=== PATIENT | male | born 1960 | race Caucasian/White ===

== ENCOUNTER 2016-08-16 13:09 | Emergency (ER) | payer OTHER ==
[~2016-08-16] VITALS: Ht 162.6 cm; Wt 79.9 kg
[~2016-08-16 13:09] MED LIST: ENAL20TA PO
[2016-08-16 13:14] VITALS: Ht 162.6 cm; Wt 79.9 kg
[2016-08-16] MEDS ORDERED: ENAL20TA PO (14:03)
[2016-08-16] MEDS ORDERED: NICARDipine HCL 30 MG CAPSULE PO ONE (14:30)
--- NOTE | 2016-08-16 14:32 | ERD ---
ER Documentation Chief Complaint Date/Time DATE: 08/16/16 TIME: 14:29 Chief Complaint REFILL OF ENALAPRIL HPI Patient is a 55-year-old male with coronary disease and hypertension who presents for a refill of his enalapril. He says "I just need a prescription for enalapril". He said that he ran out 2 days ago. He is in between doctors and could not to the doctor to fill his prescription. He has high blood pressure. He denies any symptoms. He has no chest pain or shortness of breath. Upon review of old medical records this is the patient's 10th visit to the ER since 2012. He does not currently have a primary doctor. ROS All systems reviewed and are negative except as per history of present illness. Medications Home Meds Active Scripts Enalapril Maleate* (Enalapril Maleate*) 20 Mg Tablet, 20 MG PO DAILY, #30 TAB Prov:NADIYA SINHA MD 08/16/16 Reported Medications Enalapril Maleate* (Enalapril Maleate*) 20 Mg Tablet, 20 MG PO DAILY, TAB 08/18/15 Allergies Allergies: Coded Allergies: No Known Allergy (Unverified , 08/18/15) PMhx/Soc History of Surgery: No Anesthesia Reaction: No Hx Neurological Disorder: No Hx Respiratory Disorders: No Hx Cardiac Disorders: Yes (HTN) Hx Psychiatric Problems: No Hx Miscellaneous Medical Probl: No Hx Alcohol Use: No Hx Substance Use: No Hx Tobacco Use: No Smoking Status: Unknown if ever smoked FmHx Family History: No diabetes Physical Exam Vitals Vital Signs Date Time Temp Pulse Resp B/P Pulse Ox O2 Delivery O2 Flow Rate FiO2 08/16/16 13:14 98.1 89 18 209/128 99 Physical Exam Const: No acute distress Head: Atraumatic Eyes: Normal Conjunctiva ENT: Normal External Ears, Nose and Mouth. Neck: Full range of motion..~ No meningismus. Resp: Clear to auscultation bilaterally Cardio: Regular rate and rhythm, no murmurs Abd: Soft, non tender, non distended. Normal bowel sounds Skin: No petechiae or rashes Back: No midline or flank tenderness Ext: No cyanosis, or edema Neur: Awake and alert Psych: Normal Mood and Affect Results 24 hrs Current Medications Medications (Trade) Dose Ordered Sig/Naty Route PRN Reason Start Time Stop Time Status Last Admin Dose Admin Nicardipine HCl (Cardene) 30 mg ONCE ONCE PO 08/16/16 14:30 08/16/16 14:31 08/16/16 14:07 Procedures/MDM Smoking Cessation Therapy: Pt. was lectured for greater than 3 minutes on the health risks of continued smoking and the benefits of cessation. Patient is a 55-year-old male with hypertension who presents with hypertension. His blood pressure was over 200 systolic in the emergency department but he is a symptomatically. The patient wants a prescription for enalapril and I will give him a prescription. The patient will also be given Cardene by mouth in the emergency department for his blood pressure. At this point I doubt true hypertensive emergency. I believe outpatient management is appropriate. The patient can follow-up with a primary doctor within 1 week for reevaluation. The patient can return for any worsening symptoms. I believe outpatient management is appropriate. Departure Diagnosis: Primary Impression: Encounter for medication refill Additional Impression: Hypertension Hypertension type: essential hypertension Qualified Code: I10 - Essential hypertension Condition: Fair Patient Instructions: High Blood Pressure (Hypertension) Referrals: [facility] YOU HAVE RECEIVED A MEDICAL SCREENING EXAM AND THE RESULTS INDICATE THAT YOU DO NOT HAVE A CONDITION THAT REQUIRES URGENT TREATMENT IN THE EMERGENCY DEPARTMENT. FURTHER EVALUATION AND TREATMENT OF YOUR CONDITION CAN WAIT UNTIL YOU ARE SEEN IN YOUR DOCTORS OFFICE WITHIN THE NEXT 1-2 DAYS. IT IS YOUR RESPONSIBILITY TO MAKE AN APPOINTMENT FOR FOLOW-UP CARE. IF YOU HAVE A PRIMARY DOCTOR --you should call your primary doctor and schedule an appointment IF YOU DO NOT HAVE A PRIMARY DOCTOR YOU CAN CALL OUR PHYSICIAN REFERRAL HOTLINE AT IF YOU CAN NOT AFFORD TO SEE A PHYSICIAN YOU CAN CHOSE FROM THE FOLLOWING [facility] [address] [facility]. [facility] [address] [facility]. [facility] [address] [facility]. [facility] [address] [facility]. [facility] [address] [facility]. [facility]. [address] Additional Instructions: Call your primary care doctor TOMORROW for an appointment during the next 1-2 days.See the doctor sooner or return here if your condition worsens before your appointment time. NADIYA SINHA MD Aug 16, 2016 14:32
== END 2016-08-16 14:28 | disposition home or self-care (01) ==
LOC: E/R 13:09
DX: Z76.0 Encounter for issue of repeat prescription (principal); R40.2252 Coma scale, best verbal response, oriented, at arrival to emergency department; I10 Essential (primary) hypertension; I25.10 Atherosclerotic heart disease of native coronary artery without angina pectoris; R40.2142 Coma scale, eyes open, spontaneous, at arrival to emergency department; R40.2362 Coma scale, best motor response, obeys commands, at arrival to emergency department
CPT/HCPCS: Z7502; Z7610; 99283

== ENCOUNTER 2016-08-27 12:22 | Emergency (ER) | payer OTHER ==
[~2016-08-27] VITALS: Ht 182.9 cm; Wt 82.5 kg
[2016-08-27 12:27] VITALS: Ht 182.9 cm; Wt 82.5 kg
[2016-08-27] MEDS ORDERED: FAMOTIDINE 20 MG INJ IV STA (13:19)
[2016-08-27] MEDS ORDERED: LIDOCAINE/MYLANTA 40 ML BTL PO STA (13:19)
[2016-08-27] MEDS ORDERED: LIDOCAINE 2% VISC 15 ML CUP PO ONE (13:30)
[2016-08-27] MEDS ORDERED: AMLO-147 PO (13:42)
[2016-08-27] MEDS ORDERED: METO25TA4 PO (13:42)
[2016-08-27 14:01] LABS: ADD SCAN DIFF NO
[2016-08-27 14:03] LABS: BASOPHIL # 0.1 10^3/ul (0.0-0.1); BASOPHILS % 1.1 % (0.0-2.0); EOSINOPHILS # 0.4 10^3/ul (0.0-0.5); EOSINOPHILS % 3.7 % (0.0-7.0); HEMATOCRIT 49.1 % (42.0-52.0); HEMOGLOBIN 16.1 g/dl (14.0-18.0); LYMPHOCYTES # 2.6 10^3/ul (0.8-2.9); MEAN CORPUSCULAR HEMOGLOBIN 28.9 pg (29.0-33.0); MEAN CORPUSCULAR HGB CONC 32.8 g/dl (32.0-37.0); MEAN CORPUSCULAR VOLUME 88.2 fl (82.0-101.0); MEAN PLATELET VOLUME 10.2 fl (7.4-10.4); MONOCYTE # 0.8 10^3/ul (0.3-0.9); MONOCYTES % 7.4 % (0.0-11.0); NEUTROPHIL # 6.4 10^3/ul (1.6-7.5); NEUTROPHILS % 62.3 % (39.0-77.0); PLATELET COUNT 345 10^3/UL (140-415); RED BLOOD COUNT 5.57 10^6/ul (4.70-6.10); RED CELL DISTRIBUTION WIDTH 13.6 % (11.5-14.5); WHITE BLOOD COUNT 10.3 10^3/ul (4.8-10.8)
[2016-08-27 14:17] LABS: ALBUMIN 3.8 g/dl (3.3-4.9); CHLORIDE 100 mmol/L (97-110)
[2016-08-27 14:18] LABS: POTASSIUM 4.2 mmol/L (3.5-5.1); SODIUM 141 mmol/L (135-144)
[2016-08-27 14:20] LABS: ALBUMIN/GLOBULIN RATIO 1.18; ALKALINE PHOSPHATASE 92 IU/L (42-121); ANION GAP 17 (8-16); ASPARTATE AMINO TRANSFERASE 30 IU/L (15-46); BILIRUBIN,INDIRECT 0.9 mg/dl (0-1.1); BILIRUBIN,TOTAL 0.9 mg/dl (0.2-1.3); BLOOD UREA NITROGEN 17 mg/dl (7-20); CARBON DIOXIDE 28 mmol/L (21-31); CREATININE 1.22 mg/dl (0.61-1.24)
[2016-08-27 14:21] LABS: ALANINE AMINOTRANSFERASE 42 IU/L (13-69); CALCIUM 9.3 mg/dl (8.4-10.2); GLUCOSE 90 mg/dl (70-220)
[2016-08-27 14:31] LABS: TROPONIN-I < 0.012 ng/ml (0.00-0.12)
--- NOTE | 2016-08-27 14:41 | RADRPT ---
PROCEDURE: XR Chest. CLINICAL INDICATION: Chest pain/abdominal pain TECHNIQUE: Chest AP portable. COMPARISON: 04/12/2014 FINDINGS: The mediastinal structures are unremarkable. The heart is normal in size and configuration. The pu lmonary vascularity is normal. The lung bland are unremarkable. No consolidation is identified. The pleural spaces are unremarkable. The axial skeleton is unremarkable. IMPRESSION: No active intrathoracic disease. RPTAT: HGDB .Star Esteves MD, MD Date Time Electronically viewed and signed by .Star Esteves MD, on 08/27/2016 14:41 .B/
[2016-08-27] MEDS ORDERED: OMEP40CA6 PO (16:07)
--- NOTE | 2016-08-27 16:15 | ERD ---
ER Documentation Chief Complaint Date/Time DATE: 08/27/16 TIME: 16:10 Chief Complaint ap/epigastric pain HPI This a 55-year-old male complains of 3 days of epigastric pain that is worse after eating. He describes the pain as a burning sensation that is relieved with burping. Says that he gets worse every time after food and also when he lays flat at night. He states he has had the same thing in the past with heartburn. No diarrhea no chest pain no shortness of breath no nausea vomiting. No melena. No pain in the jaws shoulders elbows arms. No radiation of pain ROS All systems reviewed and are negative except as per history of present illness. Medications Home Meds Active Scripts Omeprazole* (Omeprazole*) 40 Mg Capsule.dr, 40 MG PO DAILY, #30 CAP Prov:TRACIE MIRELES DO 08/27/16 Enalapril Maleate* (Enalapril Maleate*) 20 Mg Tablet, 20 MG PO DAILY, #30 TAB Prov:NADIYA SINHA MD 08/16/16 Reported Medications Metoprolol Tartrate* (Lopressor*) 25 Mg Tablet, 25 MG PO BID, #60 TAB 08/27/16 Amlodipine Besylate* (Amlodipine Besylate*) 10 Mg Tablet, 10 MG PO DAILY, #30 TAB 08/27/16 Discontinued Reported Medications Enalapril Maleate* (Enalapril Maleate*) 20 Mg Tablet, 20 MG PO DAILY, TAB 08/18/15 Allergies Allergies: Coded Allergies: No Known Allergy (Unverified , 08/27/16) PMhx/Soc History of Surgery: No Anesthesia Reaction: No Hx Neurological Disorder: No Hx Respiratory Disorders: No Hx Cardiac Disorders: Yes (HTN, heart valve stenosis) Hx Psychiatric Problems: No Hx Miscellaneous Medical Probl: No Hx Alcohol Use: No Hx Substance Use: No Hx Tobacco Use: Yes Smoking Status: Current every day smoker FmHx Family History: No coronary disease Physical Exam Vitals Vital Signs Date Time Temp Pulse Resp B/P Pulse Ox O2 Delivery O2 Flow Rate FiO2 08/27/16 14:29 57 17 130/94 100 Room Air 08/27/16 13:23 66 16 140/100 100 Room Air 08/27/16 12:27 98.0 80 18 156/97 100 Physical Exam Const: Well-developed, well-nourished Head: Atraumatic, normocephalic Eyes: Normal Conjunctiva, PERRLA, EOMI, normal sclera, no nystagmus ENT: Normal External Ears, Nose and Mouth, moist mucus membranes. Neck: Full range of motion. No meningismus, no lymphadenopathy. Resp: Clear to auscultation bilaterally, no wheezing, rhonchi, rales Cardio: Regular rate and rhythm, no murmurs, S1 S2 present Abd: Soft, mild reproducible epigastric tenderness non distended. Normal bowel sounds, no guarding or rebound, no pulsitile abdominal masses or bruits Skin: No petechiae or rashes, no ecchymosis , no maculopapular rash Back: No midline or flank tenderness Ext: No cyanosis, or edema, FROM x 4, normal inspection, neurovascularly intact x 4 Neur: Awake and alert, STR 5/5 x 4, sensation intact x 4, no focal findings, cerebellum intact Psych: Normal Mood and Affect Result Diagram: 08/27/16 1325 08/27/16 1325 Results 24 hrs Laboratory Tests Test 08/27/16 13:25 White Blood Count 10.310^3/ul Red Blood Count 5.5710^6/ul Hemoglobin 16.1g/dl Hematocrit 49.1% Mean Corpuscular Volume 88.2fl Mean Corpuscular Hemoglobin 28.9pg Mean Corpuscular Hemoglobin Concent 32.8g/dl Red Cell Distribution Width 13.6% Platelet Count 55112^3/UL Mean Platelet Volume 10.2fl Neutrophils % 62.3% Lymphocytes % 25.0% Monocytes % 7.4% Eosinophils % 3.7% Basophils % 1.1% Nucleated Red Blood Cells % 0.0/100WBC Neutrophils # 6.410^3/ul Lymphocytes # 2.610^3/ul Monocytes # 0.810^3/ul Eosinophils # 0.410^3/ul Basophils # 0.110^3/ul Nucleated Red Blood Cells # 0.010^3/ul Sodium Level 141mmol/L Potassium Level 4.2mmol/L Chloride Level 100mmol/L Carbon Dioxide Level 28mmol/L Anion Gap 17 Blood Urea Nitrogen 17mg/dl Creatinine 1.22mg/dl Glucose Level 90mg/dl Calcium Level 9.3mg/dl Total Bilirubin 0.9mg/dl Direct Bilirubin 0.00mg/dl Indirect Bilirubin 0.9mg/dl Aspartate Amino Transf (AST/SGOT) 30IU/L Alanine Aminotransferase (ALT/SGPT) 42IU/L Alkaline Phosphatase 92IU/L Troponin I < 0.012ng/ml Total Protein 7.0g/dl Albumin 3.8g/dl Globulin 3.20g/dl Albumin/Globulin Ratio 1.18 Lipase 262U/L Current Medications Medications (Trade) Dose Ordered Sig/Naty Route PRN Reason Start Time Stop Time Status Last Admin Dose Admin Famotidine (Pepcid Iv) 20 mg ONCE STAT IV 08/27/16 13:19 08/27/16 13:21 DC 08/27/16 13:34 Miscellaneous Medication (Gi Cocktail (2)) 40 ml ONCE STAT PO 08/27/16 13:19 08/27/16 13:21 DC 08/27/16 13:34 Lidocaine (Xylocaine (Viscous)) 15 ml ONCE ONCE PO 08/27/16 13:30 08/27/16 13:31 DC 08/27/16 13:34 Procedures/MDM EKG: Rate/Rhythm: Normal Sinus Rhythm,NL intervals, LVH QRS, ST, QT: NORMAL CT, QRS, QT] Impression: NORMAL EKG PROCEDURE: XR Chest. CLINICAL INDICATION: Chest pain/abdominal pain TECHNIQUE: Chest AP portable. COMPARISON: 04/12/2014 FINDINGS: The mediastinal structures are unremarkable. The heart is normal in size and configuration. The pulmonary vascularity is normal. The lung bland are unremarkable. No consolidation is identified. The pleural spaces are unremarkable. The axial skeleton is unremarkable. IMPRESSION: No active intrathoracic disease. RPTAT: HGDB .Star Esteves MD, Date Time Electronically viewed and signed by .Star Esteves MD, MD on 08/27/2016 14:41 .B/ CC: TRACIE MIRELES DO Patient received a GI cocktail with extra lidocaine. He said this completely relieved his symptoms. The patient was then given a p.o. challenge and is able to tolerate food without any pain. Kristel patient's symptoms are GI related and not cardiac. Discharge with omeprazole and I reviewed with him a low acid diet Departure Diagnosis: Primary Impression: Dyspepsia Condition: Stable Patient Instructions: Gastritis Vs. Ulcer TRACIE MIRELES DO Aug 27, 2016 16:15
[2016-08-27 16:19] VITALS: BP 134/104; PULSE 56; RESP 18
== END 2016-08-27 16:22 | disposition home or self-care (01) ==
LOC: E/R 12:22
DX: R10.13 Epigastric pain (principal); I10 Essential (primary) hypertension; F17.210 Nicotine dependence, cigarettes, uncomplicated
CPT/HCPCS: 71010; 80053; 83690; 84484; 85025; 93005; Z7610; 36415; 96374

== ENCOUNTER 2016-10-27 16:39 | Emergency (ER) | payer OTHER ==
[~2016-10-27] VITALS: Ht 182.9 cm; Wt 81.9 kg
[~2016-10-27 16:39] MED LIST changes: +AMLO-147 PO; +METO25TA4 PO; +OMEP40CA6 PO
[2016-10-27 16:40] VITALS: Ht 182.9 cm; Wt 81.9 kg
[2016-10-27] MEDS ORDERED: METO-448 PO (17:53)
[2016-10-27] MEDS ORDERED: ENAL20TA PO (17:54)
[2016-10-27] MEDS ORDERED: AMLO5TAB4 PO (17:54)
--- NOTE | 2016-10-27 18:10 | ERD ---
ER Documentation Chief Complaint Date/Time DATE: 10/27/16 TIME: 18:08 Chief Complaint Med refill Enalapril, Metoprolol, Amlodipine HPI This is a 55-year-old male presents to the ER for medication refill. Patient currently takes enalapril metoprolol and amlodipine for his high blood pressure. Patient ran out of blood pressure medication 4 days ago and is not taking any medication. Patient is currently asymptomatic and denies any chest pain, shortness of breath, headache, dizziness, blurry vision. He states that he has not been able to get a primary care doctor and this is the reason why he ran out of his blood pressure medication. ROS 12 point review of systems was done, all negative except per HPI. Medications Home Meds Active Scripts Enalapril Maleate* (Enalapril Maleate*) 20 Mg Tablet, 20 MG PO DAILY for 30 Days , #30 TAB Prov:KRISTY TREVINO 10/27/16 Amlodipine Besylate* (Norvasc*) 5 Mg Tablet, 5 MG PO QHS for 30 Days, #30 TAB Prov:KRISTY TREVINO 10/27/16 Metoprolol Tartrate* (Lopressor*) 25 Mg Tab, 25 MG PO BID for 30 Days, #60 TAB Prov:URIELKRISTY MERRILL 10/27/16 Omeprazole* (Omeprazole*) 40 Mg Capsule.dr, 40 MG PO DAILY, #30 CAP Prov:TRACIE MIRELES DO 08/27/16 Enalapril Maleate* (Enalapril Maleate*) 20 Mg Tablet, 20 MG PO DAILY, #30 TAB Prov:NADIYA SINHA MD 08/16/16 Reported Medications Metoprolol Tartrate* (Lopressor*) 25 Mg Tablet, 25 MG PO BID, #60 TAB 08/27/16 Amlodipine Besylate* (Amlodipine Besylate*) 10 Mg Tablet, 10 MG PO DAILY, #30 TAB 08/27/16 Allergies Allergies: Coded Allergies: No Known Allergy (Unverified , 08/27/16) PMhx/Soc Medical and Surgical Hx: pt denies Medical Hx History of Surgery: No Anesthesia Reaction: No Hx Neurological Disorder: No Hx Respiratory Disorders: No Hx Cardiac Disorders: Yes (HTN, heart valve stenosis) Hx Psychiatric Problems: No Hx Miscellaneous Medical Probl: No Hx Alcohol Use: No Hx Substance Use: No Hx Tobacco Use: Yes Smoking Status: Current every day smoker Physical Exam Vitals Physical Exam GENERAL: The patient is well developed and appropriate for usual state of health , in no apparent distress. HEENT: Atraumatic. CHEST: Clear to auscultation bilaterally. There are no rales, wheezes or rhonchi. HEART: Regular rate and rhythm. No murmurs, clicks, rubs or gallops. EXTREMITIES: Full range of motion. Grossly neurovascularly intact. NEURO: Alert and oriented. Cranial nerves II through XII are intact. Motor strength in all 4 extremities with 5/5 strength. Sensation grossly intact. Normal speech and gait. SKIN: There is no apparent rash or petechia. The skin is warm and dry. Results 24 hrs Current Medications Medications (Trade) Dose Ordered Sig/Naty Route PRN Reason Start Time Stop Time Status Last Admin Dose Admin Clonidine (Catapres) 0.1 mg ONCE ONCE PO 10/27/16 17:30 10/27/16 17:31 DC 10/27/16 17:19 Procedures/MDM This is a 55-year-old male presents to the ER for medication refill. Patient's blood pressure was elevated to 203/118. He was given clonidine and his blood pressures was trending down. Patient is completely asymptomatic and simply has not had medication for the last 4 days. Patient does not have any hypertensive urgency or emergency. Patient will be sent home with his refills. He needs to follow-up with his primary care doctor within 1-2 days return to ER sooner if symptoms worsen. My medical decision making was shared with the patient he understands and agrees with plan. Departure Diagnosis: Primary Impression: Encounter for medication refill Condition: Stable Patient Instructions: Taking Medicine Safely Referrals: RICK TEE (PCP) Additional Instructions: Call your primary care doctor TOMORROW for an appointment during the next 1-2 days.See the doctor sooner or return here if your condition worsens before your appointment time. KRISTY TREVINO Oct 27, 2016 18:10 Patient Instructions: Taking Medicine Safely Referrals: RICK TEE (PCP) Additional Instructions: Call your primary care doctor TOMORROW for an appointment during the next 1-2 days.See the doctor sooner or return here if your condition worsens before your appointment time. KRISTY TREVINO Oct 27, 2016 18:10
[2016-10-27 18:20] VITALS: BP 168/100; PULSE 84; RESP 20; TEMP 98.2
== END 2016-10-27 18:22 | disposition home or self-care (01) ==
LOC: E/R 16:39 → FTE 18:22
DX: Z76.0 Encounter for issue of repeat prescription (principal); I10 Essential (primary) hypertension; F17.210 Nicotine dependence, cigarettes, uncomplicated
CPT/HCPCS: 99283

== ENCOUNTER 2016-11-27 10:35 | Emergency (ER) | payer OTHER ==
[~2016-11-27] VITALS: Ht 182.9 cm; Wt 86.0 kg
[~2016-11-27 10:35] MED LIST changes: +AMLO5TAB4 PO; +METO-448 PO
[2016-11-27 10:42] VITALS: Ht 182.9 cm; Wt 86.0 kg
[2016-11-27] MEDS ORDERED: ENAL20TA PO (10:58)
[2016-11-27] MEDS ORDERED: OMEP20CA16 PO (10:58)
[2016-11-27] MEDS ORDERED: AMLO-145 PO (10:58)
[2016-11-27] MEDS ORDERED: METO25TA4 PO (10:58)
--- NOTE | 2016-11-27 11:14 | ERD ---
ER Documentation Chief Complaint Date/Time DATE: 11/27/16 TIME: 11:12 Chief Complaint REQUIRES MEDICATION REFILL FOR DAILY HTN MANAGEMENT HPI This particular 56-year-old gentleman comes to the emergency room simply for medication refills. He lost his insurance and currently does not have a doctor but he is in the process of going through the paperwork to get [employer] and is the assigned a primary care physician. He is out of amlodipine, Prilosec, metoprolol, enalapril. He has no symptoms of chest pain or any other pain or abnormality currently. ROS All systems reviewed and are negative except as per history of present illness. Medications Home Meds Active Scripts Omeprazole* (Omeprazole*) 20 Mg Capsule., 20 MG PO DAILY, #30 CAP Prov:TOMCHRISTOPHER DO 11/27/16 Enalapril Maleate* (Enalapril Maleate*) 20 Mg Tablet, 20 MG PO DAILY, #30 TAB Prov:CHRISTOPHER SANTOS DO 11/27/16 Metoprolol Tartrate* (Lopressor*) 25 Mg Tablet, 25 MG PO BID, #60 TAB Prov:CHRISTOPHER SANTOS DO 11/27/16 Amlodipine Besylate* (Amlodipine Besylate*) 5 Mg Tablet, 5 MG PO DAILY, #30 TAB Prov:CHRISTOPHER SANTOS DO 11/27/16 Enalapril Maleate* (Enalapril Maleate*) 20 Mg Tablet, 20 MG PO DAILY for 30 Days , #30 TAB Prov:URIEL,KRISTY C 10/27/16 Amlodipine Besylate* (Norvasc*) 5 Mg Tablet, 5 MG PO QHS for 30 Days, #30 TAB Prov:URIEL,KRISTY C 10/27/16 Metoprolol Tartrate* (Lopressor*) 25 Mg Tab, 25 MG PO BID for 30 Days, #60 TAB Prov:URIEL,KRISTY C 10/27/16 Omeprazole* (Omeprazole*) 40 Mg Capsule., 40 MG PO DAILY, #30 CAP Prov:TRACIE MIRELES DO 08/27/16 Enalapril Maleate* (Enalapril Maleate*) 20 Mg Tablet, 20 MG PO DAILY, #30 TAB Prov:NADIYA SINHA MD 08/16/16 Reported Medications Metoprolol Tartrate* (Lopressor*) 25 Mg Tablet, 25 MG PO BID, #60 TAB 08/27/16 Amlodipine Besylate* (Amlodipine Besylate*) 10 Mg Tablet, 10 MG PO DAILY, #30 TAB 08/27/16 Allergies Allergies: Coded Allergies: No Known Allergy (Unverified , 08/27/16) PMhx/Soc History of Surgery: No Anesthesia Reaction: No Hx Neurological Disorder: No Hx Respiratory Disorders: No Hx Cardiac Disorders: Yes (HTN, heart valve stenosis) Hx Psychiatric Problems: No Hx Miscellaneous Medical Probl: No Hx Alcohol Use: No Hx Substance Use: No Hx Tobacco Use: Yes Physical Exam Vitals Vital Signs Date Time Temp Pulse Resp B/P Pulse Ox O2 Delivery O2 Flow Rate FiO2 11/27/16 10:42 98.0 62 18 159/89 98 Physical Exam Const: [] No distress . Neck: Full range of motion..~ No meningismus. No JVD Resp: Clear to auscultation bilaterally Cardio: Regular rate and rhythm, no murmurs Procedures/MDM Simple medication refill of antihypertensive medications and Prilosec. Giving him a 30 day supply to allow him time to finish his [employer] paperwork and get a primary physician. Return precautions for any acute symptoms. Departure Diagnosis: Primary Impression: Hypertension Additional Impression: Encounter for medication refill Condition: Stable Patient Instructions: High Blood Pressure (Hypertension) Additional Instructions: Call your primary care doctor TOMORROW for an appointment during the next 2-3 days.See the doctor sooner or return here if your condition worsens before your appointment time. CHRISTOPHER SANTOS DO Nov 27, 2016 11:14
== END 2016-11-27 12:42 | disposition home or self-care (01) ==
LOC: FTE 10:35
DX: I10 Essential (primary) hypertension (principal); Z87.891 Personal history of nicotine dependence
CPT/HCPCS: 99281

== ENCOUNTER 2017-01-05 16:30 | Emergency (ER) | payer OTHER ==
[~2017-01-05] VITALS: Ht 175.3 cm; Wt 87.0 kg
[~2017-01-05 16:30] MED LIST changes: +AMLO-145 PO; +OMEP20CA16 PO
[2017-01-05 16:32] VITALS: Ht 175.3 cm; Wt 87.0 kg
[2017-01-05] MEDS ORDERED: OMEP40CA6 PO (16:59)
[2017-01-05] MEDS ORDERED: METO25TA7 PO (16:59)
[2017-01-05] MEDS ORDERED: ENAL20TA PO (16:59)
[2017-01-05] MEDS ORDERED: AMLO2.5T78 PO (16:59)
--- NOTE | 2017-01-05 17:12 | ERA ---
ER Documentation Chief Complaint Date/Time DATE: 01/05/17 TIME: 17:10 Chief Complaint NEEDS MED REFILL ON HTN MEDS , OUT OF MEDS X 2 DAYS HPI 56-year-old male presenting requesting medication refill. Patient is requesting refills on his amlodipine, enalapril, metoprolol. Patient states he realizes he needs a primary care physician but cannot find one at this time. Patient has no current complaints and describes no adverse effects of the medications. No recent travel. Vaccination status up-to-date. ROS All systems reviewed and are negative except as per history of present illness. Medications Home Meds Active Scripts Metoprolol Succinate* (Toprol XL*) 25 Mg Tab.sr.24h, 25 MG PO DAILY for 14 Days , #30 TAB Prov:SYEDA LU PA-C 01/05/17 Amlodipine Besylate* (Amlodipine Besylate*) 2.5 Mg Tablet, 5 MG PO DAILY, #14 TAB Prov:SYEDA LU PA-C 01/05/17 Enalapril Maleate* (Enalapril Maleate*) 20 Mg Tablet, 20 MG PO DAILY for 14 Days , TAB Prov:SYEDA LU PA-C 01/05/17 Omeprazole* (Omeprazole*) 40 Mg Capsule., 40 MG PO DAILY, #10 CAP Prov:SYEDA LU PA-C 01/05/17 Omeprazole* (Omeprazole*) 20 Mg Capsule.dr, 20 MG PO DAILY, #30 CAP Prov:CHRISTOPHER SANTOS DO 11/27/16 Enalapril Maleate* (Enalapril Maleate*) 20 Mg Tablet, 20 MG PO DAILY, #30 TAB Prov:CHRISTOPHER SANTOS DO 11/27/16 Metoprolol Tartrate* (Lopressor*) 25 Mg Tablet, 25 MG PO BID, #60 TAB Prov:CHRISTOPHER SANTOS DO 11/27/16 Amlodipine Besylate* (Amlodipine Besylate*) 5 Mg Tablet, 5 MG PO DAILY, #30 TAB Prov:CHRISTOPHER SANTOS DO 11/27/16 Enalapril Maleate* (Enalapril Maleate*) 20 Mg Tablet, 20 MG PO DAILY for 30 Days , #30 TAB Prov:KRISTY TREVINO 10/27/16 Amlodipine Besylate* (Norvasc*) 5 Mg Tablet, 5 MG PO QHS for 30 Days, #30 TAB Prov:KRISTY TREVINO 10/27/16 Metoprolol Tartrate* (Lopressor*) 25 Mg Tab, 25 MG PO BID for 30 Days, #60 TAB Prov:KRISTY TREVINO C 10/27/16 Omeprazole* (Omeprazole*) 40 Mg Capsule.dr, 40 MG PO DAILY, #30 CAP Prov:TRACIE MIRELES DO 08/27/16 Enalapril Maleate* (Enalapril Maleate*) 20 Mg Tablet, 20 MG PO DAILY, #30 TAB Prov:NADIYA SINHA MD 08/16/16 Reported Medications Metoprolol Tartrate* (Lopressor*) 25 Mg Tablet, 25 MG PO BID, #60 TAB 08/27/16 Amlodipine Besylate* (Amlodipine Besylate*) 10 Mg Tablet, 10 MG PO DAILY, #30 TAB 08/27/16 Allergies Allergies: Coded Allergies: No Known Allergy (Unverified , 08/27/16) PMhx/Soc History of Surgery: No Anesthesia Reaction: No Hx Neurological Disorder: No Hx Respiratory Disorders: No Hx Cardiac Disorders: Yes (HTN, heart valve stenosis) Hx Psychiatric Problems: No Hx Miscellaneous Medical Probl: No Hx Alcohol Use: No Hx Substance Use: No Hx Tobacco Use: Yes Smoking Status: Current every day smoker Physical Exam Vitals Vital Signs Date Time Temp Pulse Resp B/P Pulse Ox O2 Delivery O2 Flow Rate FiO2 01/05/17 16:32 98.1 74 16 218/108 98 Physical Exam Const: Well-appearing, no acute distress. Head: Atraumatic Eyes: Normal Conjunctiva ENT: Normal External Ears, Nose and Mouth. Neck: Full range of motion..~ No meningismus. Resp: Clear to auscultation bilaterally Cardio: Regular rate and rhythm, no murmurs Abd: Soft, non tender, non distended. Normal bowel sounds Skin: No petechiae or rashes Back: No midline or flank tenderness Ext: No cyanosis, or edema Neur: Awake and alert Psych: Normal Mood and Affect Procedures/MDM 56-year-old male presenting requesting medication refill. Patient is currently actively trying to find a PCP. Medications will be given 14 days. I told the patient he is to find a PCP. List of community clinics has been given to the patient. Vitals are stable and current condition is appropriate for discharge. Patient will be given discharge instructions with return precautions per Departure Diagnosis: Primary Impression: Encounter for medication refill Condition: Stable Patient Instructions: Taking Medicine Safely Referrals: RICK TEE (PCP) [facility] YOU HAVE RECEIVED A MEDICAL SCREENING EXAM AND THE RESULTS INDICATE THAT YOU DO NOT HAVE A CONDITION THAT REQUIRES URGENT TREATMENT IN THE EMERGENCY DEPARTMENT. FURTHER EVALUATION AND TREATMENT OF YOUR CONDITION CAN WAIT UNTIL YOU ARE SEEN IN YOUR DOCTORS OFFICE WITHIN THE NEXT 1-2 DAYS. IT IS YOUR RESPONSIBILITY TO MAKE AN APPOINTMENT FOR FOLOW-UP CARE. IF YOU HAVE A PRIMARY DOCTOR --you should call your primary doctor and schedule an appointment IF YOU DO NOT HAVE A PRIMARY DOCTOR YOU CAN CALL OUR PHYSICIAN REFERRAL HOTLINE AT IF YOU CAN NOT AFFORD TO SEE A PHYSICIAN YOU CAN CHOSE FROM THE FOLLOWING [facility] [address] [facility]. [facility] [address] [facility] [facility] [address] [facility] [facility] [address] [facility] [facility] [address] [facility]. [facility]. [address] [place] . [facility] [place] () Usted se blanchard hecho un examen mdico de control que le indica que no est en imelda condicin que requiera tratamiento urgente en el Departamento de Emergencia. Un estudio ms profundo y el tratamiento de hernandez condicin pueden esperar sin ningn riesgo hasta que usted sea atendida/o en el consultorio de hernandez mdico o imelda cl jasmina. Es responsabilidad suya arreglar imelda mahesh para el seguimiento del mickey. MANEJO DE CONDICIONES NO URGENTES EN EL FUTURO 1) Si usted tiene un mdico de atencin primaria: Usted debera llamar a hernandez mdico de atencin primaria antes de venir al departamento de emergencia. Despus de las horas de consultorio, hernandez doctor o hernandez asociado/a est disponible por telfono. El mdico o enfermero de sebas en el servicio telefnico puede asesorarle por maik medio para atender el problema, o mickey contrario se puede programar imelda mahesh. 2) Si usted no tiene un mdico de atencin primaria: Llame al mdico o clnica de referencia que aparece abajo dhruv las horas de consultorio para hacer imelda mahesh para que le vean. CLINICAS: [facility] [phone] [address] [facility] [phone] [facility] [phone] [facility] [phone] [place] [id number] [phone] [facility] [phone] [address] Additional Instructions: Follow up with your PCP within the next 1-3 days for a more thorough evaluation and a possible referral to a specialist. A list of [facility] has been given to. Return the the emergency department immediately if symptoms arise. Take your medications as directed. SYEDA LU PA-C Jan 05, 2017 17:09
== END 2017-01-05 17:20 | disposition home or self-care (01) ==
LOC: FTE 16:30
DX: Z76.0 Encounter for issue of repeat prescription (principal); I10 Essential (primary) hypertension; F17.210 Nicotine dependence, cigarettes, uncomplicated
CPT/HCPCS: 99281

== ENCOUNTER 2017-01-28 09:48 | Emergency (ER) | payer OTHER ==
[~2017-01-28] VITALS: Ht 182.9 cm; Wt 89.8 kg
[~2017-01-28 09:48] MED LIST changes: +AMLO2.5T78 PO; +METO-335 PO
[2017-01-28 09:52] VITALS: Ht 182.9 cm; Wt 89.8 kg
[2017-01-28] MEDS ORDERED: IPRATROPIUM (NEB) 0.5 MG/2.5 ML AMP INH STA (10:52)
[2017-01-28] MEDS ORDERED: ALBUTEROL 0.5% (NEB) 2.5 MG/0.5 ML AMP INH STA (10:52)
[2017-01-28] MEDS ORDERED: OMEP40CA6 PO (11:13)
[2017-01-28] MEDS ORDERED: AMLO5TAB4 PO (11:13)
[2017-01-28] MEDS ORDERED: ENAL20TA PO (11:13)
[2017-01-28] MEDS ORDERED: METO-448 PO (11:14)
[2017-01-28 11:27] LABS: BASOPHIL # 0.1 10^3/ul (0.0-0.1); BASOPHILS % 0.9 % (0.0-2.0); EOSINOPHILS # 0.5 10^3/ul (0.0-0.5); EOSINOPHILS % 4.4 % (0.0-7.0); HEMATOCRIT 45.6 % (42.0-52.0); HEMOGLOBIN 15.1 g/dl (14.0-18.0); LYMPHOCYTES % 18.3 % (15.0-51.0); MEAN CORPUSCULAR HGB CONC 33.1 g/dl (32.0-37.0); MEAN CORPUSCULAR VOLUME 87.7 fl (82.0-101.0); MEAN PLATELET VOLUME 10.5 fl (7.4-10.4); MONOCYTE # 0.8 10^3/ul (0.3-0.9); MONOCYTES % 7.3 % (0.0-11.0); NEUTROPHIL # 7.5 10^3/ul (1.6-7.5); NEUTROPHILS % 68.8 % (39.0-77.0); PLATELET COUNT 286 10^3/UL (140-415); RED CELL DISTRIBUTION WIDTH 13.5 % (11.5-14.5); WHITE BLOOD COUNT 10.9 10^3/ul (4.8-10.8)
[2017-01-28] MEDS ORDERED: hydrALAzine 20 MG INJ IV ONE (11:30)
[2017-01-28 11:47] LABS: ANION GAP 11 (8-16); BLOOD UREA NITROGEN 13 mg/dl (7-20); CALCIUM 8.7 mg/dl (8.4-10.2); CARBON DIOXIDE 29 mmol/L (21-31); CHLORIDE 105 mmol/L (97-110); CREATININE 1.02 mg/dl (0.61-1.24); GLUCOSE 141 mg/dl (70-220); POTASSIUM 3.8 mmol/L (3.5-5.1); SODIUM 141 mmol/L (135-144)
[2017-01-28] MEDS ORDERED: NICARDipine HCL 30 MG CAPSULE PO ONE (12:00)
[2017-01-28 12:03] LABS: TROPONIN-I < 0.012 ng/ml (0.00-0.12)
--- NOTE | 2017-01-28 12:03 | RADRPT ---
PROCEDURE: XR Chest. CLINICAL INDICATION: chest pain TECHNIQUE: Single frontal view of the chest was obtained COMPARISON: 08/27/2016 FINDINGS: The heart and mediastinum are within normal limits. There is mild left lower lobe linear atelectasis. The lungs are otherwise clear. There is no pleural effusion or pneumothorax. RPTAT: AA IMPRESSION: Mild left lower lobe linear atelectasis. .Christopher Serrato MD, MD Date Time Electronically viewed and signed by .Christopher Serrato MD, on 01/28/2017 12:02 .S/
[2017-01-28] MEDS ORDERED: ACETAMINOPHEN 500 MG TAB PO STA (12:13)
--- NOTE | 2017-01-28 12:48 | RADRPT ---
PROCEDURE: CT brain without contrast CLINICAL INDICATION: Headache TECHNIQUE: CT of the brain without contrast performed on a multidetector CT scanner, with multiplan ar reformats. One or more of the following dose reduction techniques were used: Automated exposure control, adjustment in mA and / or kV according to patient size, use of iterative reconstructive kenneth hnique. CTDIvol = 45 mGy; DLP = 720 mGy-cm. COMPARISON: None available FINDINGS: No acute intracranial hemorrhage is identified. No extra-axial fluid collection is seen. There is no mass effect. No midline shift is identified. The ventricles and sulci are mildly enlarged compatible with volume loss. The density of the brain appears unremarkable. Dumont-white differentiation is preserved. Atherosclerotic calcifications of the intracranial internal carotid arteries are noted. Calvarium and skull base are intact. Mild-moderate frontal sinus mucosal thickening, bilateral ethm oid air cell. Partial opacification/mild to moderate mucosal thickening, sphenoid secretions with fl uid level on the right, and suggestion of small left maxillary sinus fluid level are seen. IMPRESSION: 1. No evidence of acute intracranial pathology. 2. Mild volume loss. 3. Paranasal sinus disease described above. RPTAT: AA .Tee Almanza MD, Date Time Electronically viewed and signed by .Tee Almanza MD, on 01/28/2017 12:48 .O/
--- NOTE | 2017-01-28 13:10 | ERD ---
ER Documentation Chief Complaint Date/Time DATE: 01/28/17 TIME: 13:07 Chief Complaint SOB, HEADACHE X 3 DAYS HPI This is a 46-year-old male with a history of hypertension who presents to the emergency room for evaluation of shortness of breath and a headache and high blood pressure. The patient states that he is taking lisinopril, metoprolol, and amlodipine. He states that he does not have a primary doctor and get some majority of his medications to the emergency room. He came to the emergency room today for evaluation of his symptoms of mild shortness of breath and a headache and high blood pressure. He denies any chest pain or palpitations. ROS All systems reviewed and are negative except as per history of present illness. Medications Home Meds Reported Medications Metoprolol Tartrate* (Lopressor*) 25 Mg Tab, 25 MG PO BID, #60 TAB 01/28/17 Omeprazole* (Omeprazole*) 40 Mg Capsule.dr, 40 MG PO DAILY, #30 CAP 01/28/17 Amlodipine Besylate* (Norvasc*) 5 Mg Tablet, 5 MG PO DAILY, TAB 01/28/17 Enalapril Maleate* (Enalapril Maleate*) 20 Mg Tablet, 20 MG PO DAILY, TAB 01/28/17 Discontinued Reported Medications Metoprolol Tartrate* (Lopressor*) 25 Mg Tablet, 25 MG PO BID, #60 TAB 08/27/16 Amlodipine Besylate* (Amlodipine Besylate*) 10 Mg Tablet, 10 MG PO DAILY, #30 TAB 08/27/16 Discontinued Scripts Metoprolol Succinate* (Toprol XL*) 25 Mg Tab.sr.24h, 25 MG PO DAILY for 14 Days , #30 TAB Prov:SYEDA LU PA-C 01/05/17 Amlodipine Besylate* (Amlodipine Besylate*) 2.5 Mg Tablet, 5 MG PO DAILY, #14 TAB Prov:SYEDA LU PA-C 01/05/17 Enalapril Maleate* (Enalapril Maleate*) 20 Mg Tablet, 20 MG PO DAILY for 14 Days , TAB Prov:SYEDA LU PA-C 01/05/17 Omeprazole* (Omeprazole*) 40 Mg Capsule., 40 MG PO DAILY, #10 CAP Prov:SYEDA LU PA-C 01/05/17 Omeprazole* (Omeprazole*) 20 Mg Capsule.dr, 20 MG PO DAILY, #30 CAP Prov:CHRISTOPHER SANTOS DO 11/27/16 Enalapril Maleate* (Enalapril Maleate*) 20 Mg Tablet, 20 MG PO DAILY, #30 TAB Prov:CHRISTOPHER SANTOS DO 11/27/16 Metoprolol Tartrate* (Lopressor*) 25 Mg Tablet, 25 MG PO BID, #60 TAB Prov:CHRISTOPHER SANTOS DO 11/27/16 Amlodipine Besylate* (Amlodipine Besylate*) 5 Mg Tablet, 5 MG PO DAILY, #30 TAB Prov:CHRISTOPHER SANTOS DO 11/27/16 Enalapril Maleate* (Enalapril Maleate*) 20 Mg Tablet, 20 MG PO DAILY for 30 Days , #30 TAB Prov:KRISTY TREVINO C 10/27/16 Amlodipine Besylate* (Norvasc*) 5 Mg Tablet, 5 MG PO QHS for 30 Days, #30 TAB Prov:KRISTY TREVINO C 10/27/16 Metoprolol Tartrate* (Lopressor*) 25 Mg Tab, 25 MG PO BID for 30 Days, #60 TAB Prov:KRISTY TREVINO C 10/27/16 Omeprazole* (Omeprazole*) 40 Mg Capsule., 40 MG PO DAILY, #30 CAP Prov:TRACIE MIRELES DO 08/27/16 Enalapril Maleate* (Enalapril Maleate*) 20 Mg Tablet, 20 MG PO DAILY, #30 TAB Prov:NADIYA SINHA MD 08/16/16 Allergies Allergies: Coded Allergies: No Known Allergy (Unverified , 01/28/17) PMhx/Soc History of Surgery: No Anesthesia Reaction: No Hx Neurological Disorder: No Hx Respiratory Disorders: No Hx Cardiac Disorders: Yes (HTN, heart valve stenosis) Hx Psychiatric Problems: No Hx Miscellaneous Medical Probl: No Hx Alcohol Use: No Hx Substance Use: No Hx Tobacco Use: Yes Smoking Status: Current every day smoker Physical Exam Vitals Vital Signs Date Time Temp Pulse Resp B/P Pulse Ox O2 Delivery O2 Flow Rate FiO2 01/28/17 12:08 98.1 64 16 163/100 99 Room Air 01/28/17 11:20 57 18 99 21 01/28/17 10:15 63 205/127 01/28/17 09:52 98.2 64 18 213/130 99 Physical Exam INITIAL VITAL SIGNS: Reviewed by me GENERAL: The patient is well developed and appropriate for usual state of health in no apparent distress HEENT: Pupils equal, round, and reactive to light. EOMI. There is no scleral icterus. NECK: C-spine is soft and supple, there is no meningismus. There is no cervical lymphadenopathy. LUNGS: Clear to auscultation bilaterally. There are no rales, wheezes or rhonchi. HEART: Regular rate and rhythm, no murmurs, clicks, rubs or gallops. ABDOMEN: Soft, non-tender, non-distended. There are bowel sounds in all four quadrants. No rebound or guarding. EXTREMITIES: There is no peripheral cyanosis or edema. No focal swelling or erythema. NEUROLOGICAL: The patient moves all four extremities with 5/5 strength. Cranial nerves II - XII are intact. Normal gait. Alert and oriented SKIN: There is no apparent rash or petechiae. HEME/LYMPHATIC: There is no evidence of excessive bruising or lymphedema. PSYCHIATRIC: The patient does not appear anxious or depressed. Result Diagram: 01/28/17 1110 01/28/17 1110 Results 24 hrs Laboratory Tests Test 01/28/17 11:10 White Blood Count 10.910^3/ul Red Blood Count 5.2010^6/ul Hemoglobin 15.1g/dl Hematocrit 45.6% Mean Corpuscular Volume 87.7fl Mean Corpuscular Hemoglobin 29.0pg Mean Corpuscular Hemoglobin Concent 33.1g/dl Red Cell Distribution Width 13.5% Platelet Count 52795^3/UL Mean Platelet Volume 10.5fl Neutrophils % 68.8% Lymphocytes % 18.3% Monocytes % 7.3% Eosinophils % 4.4% Basophils % 0.9% Nucleated Red Blood Cells % 0.0/100WBC Neutrophils # 7.510^3/ul Lymphocytes # 2.010^3/ul Monocytes # 0.810^3/ul Eosinophils # 0.510^3/ul Basophils # 0.110^3/ul Nucleated Red Blood Cells # 0.010^3/ul Sodium Level 141mmol/L Potassium Level 3.8mmol/L Chloride Level 105mmol/L Carbon Dioxide Level 29mmol/L Anion Gap 11 Blood Urea Nitrogen 13mg/dl Creatinine 1.02mg/dl Glucose Level 141mg/dl Calcium Level 8.7mg/dl Troponin I < 0.012ng/ml Current Medications Medications (Trade) Dose Ordered Sig/Naty Route PRN Reason Start Time Stop Time Status Last Admin Dose Admin Albuterol (Proventil 0.5% (Neb)) 10 mg ONCE STAT INH 01/28/17 10:52 01/28/17 10:54 DC 01/28/17 11:20 Ipratropium [place] (Atrovent 0.02% (Neb)) 1 mg ONCE STAT INH 01/28/17 10:52 01/28/17 10:54 DC 01/28/17 11:19 Hydralazine HCl (Apresoline) 10 mg ONCE ONCE IV 01/28/17 11:30 01/28/17 11:31 DC 01/28/17 11:26 Nicardipine HCl (Cardene) 30 mg ONCE ONCE PO 01/28/17 12:00 01/28/17 12:01 DC 01/28/17 12:06 Acetaminophen (Tylenol Tab) 1,000 mg ONCE STAT PO 01/28/17 12:13 01/28/17 12:14 DC 01/28/17 12:24 Procedures/MDM EKG: Rate/Rhythm: Sinus bradycardia QRS, ST, T-waves: [No changes consistent w/ acute ischemia] Impression: [No evidence of ischemia or arrhythmia] Chest X-ray 1V Interpreted by me: Soft Tissue: No acute abnormalities Bones: No acute abnormalities Mediastinum/Cardiac Silhouette/Lungs: [No acute abnormalities] This 46-year-old male presents to the ER for evaluation of multiple complaints including shortness of breath and hypertension. The patient was also complaining of a headache. He was hypertensive on my examination and base of his triage vital signs. The patient was given 10 mg of hydralazine, he is hypertension improved slightly. The patient is on 3 oral antihypertensive medications at this time and I did give him a 1 dose 30 mg of Cardene. When I reevaluated this patient he said he was feeling much better. CT the brain is within normal limits with no signs of subarachnoid hemorrhage. His EKG is nonischemic, troponin is negative, and creatinine is normal with no signs of endorgan damage at this time. The patient was also complaining of mild shortness of breath and was given a breathing treatment with resolution of his symptoms. This patient will be discharged at this time with instructions to follow-up with [facility] and I will give him referral for this clinic at this time. Departure Diagnosis: Primary Impression: Shortness of breath Additional Impression: Uncontrolled hypertension Condition: Stable DANNIE CARPENTER DO Jan 28, 2017 13:10
[2017-01-28 13:33] VITALS: BP 145/88; PULSE 68; RESP 18; TEMP 98.1
== END 2017-01-28 13:41 | disposition home or self-care (01) ==
LOC: E/R 09:48
DX: R06.02 Shortness of breath (principal); I10 Essential (primary) hypertension; F17.210 Nicotine dependence, cigarettes, uncomplicated; R40.2142 Coma scale, eyes open, spontaneous, at arrival to emergency department; R40.2252 Coma scale, best verbal response, oriented, at arrival to emergency department; R40.2362 Coma scale, best motor response, obeys commands, at arrival to emergency department; R51 Headache
CPT/HCPCS: 36415; 70450; 71010; 80048; 84484; 85025; 93005; 94644; 96374; J0360; Z7502; Z7610

== ENCOUNTER 2017-03-21 12:01 | Emergency (ER) | payer OTHER ==
[~2017-03-21] VITALS: Ht 182.9 cm; Wt 91.2 kg
[~2017-03-21 12:01] MED LIST changes: -AMLO-145 PO; -AMLO-147 PO; -AMLO2.5T78 PO; -METO-335 PO; -METO25TA4 PO; -OMEP20CA16 PO
[2017-03-21 12:10] VITALS: Ht 182.9 cm; Wt 91.2 kg
--- NOTE | 2017-03-21 12:45 | ERD ---
ER Documentation Chief Complaint Chief Complaint pt here for htn medications; denies any symptoms HPI 56y/o male patient with history of resistant hypertension,presents to the emergency department requesting a refill for his blood pressure medication. The patient stated that he has not been able to find a primary doctor. Currently the patient is asymptomatic, denies headaches, blurred vision, no palpitations, no dizziness. Currently, the patient is taking enalapril 20 mg p.o. daily, amlodipine 5 mg p.o. daily however he has not been taking this medication because of the side effects and metoprolol 25 mg p.o. twice daily. The patient refers good compliance with medications except the amlodipine but the blood pressure persist elevated ROS SYSTEMIC symptoms: no fever, chills, no night sweats, no weight loss EYE symptoms: No blurred vision, no eye discharge OTOLARYNGEAL symptoms: No hearing loss. No ear pain, no sore throat CARDIOVASCULAR symptoms: No chest pain or discomfort, no palpitations. PULMONARY symptoms: No dyspnea, no cough, no wheezing. GASTROINTESTINAL symptoms: No abdominal pain, no nausea, no vomiting, no diarrhea MUSCULOSKELETAL symptoms: No arthralgias, no muscle aches. NEUROLOGY symptoms: No confusion, no syncope, no numbness or tingling. SKIN no rashes All systems reviewed and are negative except as per history of present illness. Medications Home Meds Active Scripts Metoprolol Tartrate* (Lopressor*) 50 Mg Tab, 50 MG PO BID for 90 Days, #180 TAB Prov:TD SANCHEZ MD 03/21/17 Amlodipine Besylate* (Norvasc*) 5 Mg Tablet, 5 MG PO DAILY for 90 Days, TAB Prov:TD SANCHEZ MD 03/21/17 Enalapril Maleate* (Enalapril Maleate*) 20 Mg Tablet, 20 MG PO BID for 90 Days, TAB Prov:TD SANCHEZ MD 03/21/17 Reported Medications Metoprolol Tartrate* (Lopressor*) 25 Mg Tab, 25 MG PO BID, #60 TAB 01/28/17 Omeprazole* (Omeprazole*) 40 Mg Capsule.dr, 40 MG PO DAILY, #30 CAP 01/28/17 Amlodipine Besylate* (Norvasc*) 5 Mg Tablet, 5 MG PO DAILY, TAB 01/28/17 Enalapril Maleate* (Enalapril Maleate*) 20 Mg Tablet, 20 MG PO DAILY, TAB 01/28/17 Allergies Allergies: Coded Allergies: No Known Allergy (Unverified , 01/28/17) PMhx/Soc History of Surgery: No Anesthesia Reaction: No Hx Neurological Disorder: No Hx Respiratory Disorders: No Hx Cardiac Disorders: Yes (HTN, heart valve stenosis) Hx Psychiatric Problems: No Hx Miscellaneous Medical Probl: No Hx Alcohol Use: No Hx Substance Use: No Hx Tobacco Use: Yes Physical Exam Vitals Vital Signs Date Time Temp Pulse Resp B/P Pulse Ox O2 Delivery O2 Flow Rate FiO2 03/21/17 12:10 97.8 69 18 209/130 99 Physical Exam Patient is in no acute distress, vital signs showed elevated BP. Alert and fully oriented. EYES: PERRLA, EOMI, Sclera and conjunctiva appear normal. EARS: Canals clear, tympanic membranes WNL THROAT: Normal oropharynx. NECK: Supple, No lymphadenopathy. Full ROM without pain or tenderness. HEART: RRR, no rubs, murmurs, clicks or gallops. LUNGS: Clear to auscultation. ABDOMEN: Soft, non-tender without masses or hepatosplenomegaly. EXTREMITIES: No edema bilaterally. MUSC: Full ROM, no deformity, normal back exam Results 24 hrs Current Medications Medications (Trade) Dose Ordered Sig/Naty Route PRN Reason Start Time Stop Time Status Last Admin Dose Admin Nicardipine HCl (Cardene) 30 mg ONCE ONCE PO 03/21/17 13:00 03/21/17 13:01 DC 03/21/17 12:59 Procedures/MDM 56 y/o male patient resistant HTN, presents to the ED c/o persistent elevated BP for 7 days, the patient didn't have refill for medications. Vital signs stable, Physical exam unremarkable. Differential diagnosis include but not limited to: Hypertensive emergency, hypertensive urgency, poor compliance with medications, low suspicion for acute coronary event, low suspicion for an acute neurovascular event. Physical examination and clinical presentation consistent most likely with asymptomatic hypertensive urgency. During the ED course the patient received treatment with nicardipine 30 mg p.o. presenting overall improvement of the symptoms. Clinical impression discussed with patient who agrees with management. The patient will be discharged home with a refill for his medications, we will increase the metoprolol to 50 mg twice a day and enalapril 20 mg twice daily f symptoms persist, worsen or new symptoms develop, then patient is instructed to follow-up with the primary care provider. If the patient is unable to see the primary care provider, then return to the ED immediately. Departure Diagnosis: Primary Impression: Severe uncontrolled hypertension Additional Impressions: Encounter for medication refill Asymptomatic hypertensive urgency Condition: Stable Additional Instructions: Thank you very much for allowing us to participate in your care. Your health and safety is our top priority at [facility]. Have prescriptions filled and follow precisely the directions on the label. Follow-up with primary care provider during the next 4 days and bring all the information and medications prescribed. If illness has not improved in 2 days, then make an appointment with primary care provider. If the provider is unavailable, return to the Emergency Department immediately. TD SANCHEZ MD Mar 21, 2017 12:45
[2017-03-21] MEDS ORDERED: NICARDipine HCL 30 MG CAPSULE PO ONE (13:00)
[2017-03-21] MEDS ORDERED: METO-429 PO (13:12)
[2017-03-21] MEDS ORDERED: ENAL20TA PO (13:12)
[2017-03-21] MEDS ORDERED: AMLO5TAB4 PO (13:12)
[2017-03-21 13:55] VITALS: BP 189/115
== END 2017-03-21 13:59 | disposition home or self-care (01) ==
LOC: FTE 12:01
DX: I16.0 Hypertensive urgency (principal); Z76.0 Encounter for issue of repeat prescription; Z87.891 Personal history of nicotine dependence
CPT/HCPCS: Z7502; Z7610; 99283

== ENCOUNTER 2017-07-13 17:33 | Emergency (ER) | END 2017-07-13 23:15 | disposition left against medical advice (07) ==